=== PATIENT | female | born 1950 | race African-American/Black ===

== ENCOUNTER 2017-10-05 11:05 | Emergency (ER) | payer MEDICARE, OTHER ==
[~2017-10-05] VITALS: Ht 154.9 cm; Wt 72.6 kg
--- NOTE | 2017-10-05 11:28 | Emergency Room Report ---
History of Present Illness General Chief Complaint: Chest Pain Source: Patient Present Illness HPI Patient is a 67-year-old female who presented after increased chest discomfort as well as difficulty breathing. Patient gradual onset of symptoms. She reports having increased difficulty breathing with supine position. She states she had prior history of rheumatoid arthritis as well as type 2 diabetes. She reports having stopped taking Lasix approximately 3 weeks ago. The patient the reports having increased salt intake in the past day. The patient reports having some difficulty with swallowing. Allergies: Coded Allergies: PENICILLINS (Verified Allergy, Unknown, 10/05/17) Patient History Last Menstrual Period: Unk Reviewed Nursing Documentation: PMH: Agreed; PSxH: Agreed Nursing Documentation-PMH Hx Diabetes: Yes Review of Systems All Other Systems: negative except mentioned in HPI Physical Exam Vital Signs Date Time Temp Pulse Resp B/P (MAP) Pulse Ox O2 Delivery O2 Flow Rate FiO2 10/05/17 11:15 98.6 99 22 163/93 100 Room Air 98.6 General Appearance: alert, moderate distress, Chronically Ill Eyes: bilateral eye other - disconjugate gaze ENT: no angioedema, normal voice Neck: limited range of motion Cardiovascular #1: regular rate, rhythm, edema - 3+ Cardiovascular #2: 2+ carotid (R), 2+ carotid (L), 2+ radial (R), 2+ radial (L) , 2+ dorsalis pedis (R), 2+ dorsalis pedis (L) Gastrointestinal: normal inspection, non tender, soft Musculoskeletal: decreased range of motion Neurologic: normal inspection, alert, oriented x3, responsive, site physician III-XII nml as tested Skin: normal inspection, no rash, palpation normal Medical Decision Making Diagnostic Impression: Primary Impression: Chest pain Additional Impressions: Renal failure Bilateral pleural effusion ER Course Patient presented for chest pain. Differential diagnosis included but was not limited to acute coronary syndrome, pulmonary embolism, pneumonia, aortic dissection, shingles, pneumothorax, aortic dissection, esophageal rupture, pericarditis. Because of complexity of patient's case laboratory testing and imaging studies were ordered.Laboratory testing was notable for markedly elevated BUN/creatinine. The patient was noted to be EKG interpreted by me showed normal sinus rhythm with rate of 96 with nonspecific T wave changes. The patient was given IV Lasix.The patient presented having some improvement in her symptoms. The patient was advised risk benefits alternatives of leaving AGAINST MEDICAL ADVICE and he indicated understanding and all questions are answered patient still continued want to leave and signed AGAINST MEDICAL ADVICE. Despite risks including but not limited to disability and worsening of current lifestyle. The patient was advised that she was not okay for travel and that she should be admitted for further treatment of effusions and possible dialysis. The patient stated that she did not want to remain in the hospital.patient is advised to return at any time. Labs Test 10/05/17 11:48 White Blood Count 8.9 K/UL (4.8-10.8) Red Blood Count 3.03 M/UL (4.20-5.40) Hemoglobin 9.0 G/DL (12.0-16.0) Hematocrit 26.7 % (37.0-47.0) Mean Corpuscular Volume 88 FL (80-99) Mean Corpuscular Hemoglobin 29.7 PG (27.0-31.0) Mean Corpuscular Hemoglobin Concent 33.7 G/DL (32.0-36.0) Red Cell Distribution Width 13.7 % (11.6-14.8) Platelet Count 391 K/UL (150-450) Mean Platelet Volume 6.6 FL (6.5-10.1) Neutrophils (%) (Auto) 79.3 % (45.0-75.0) Lymphocytes (%) (Auto) 14.3 % (20.0-45.0) Monocytes (%) (Auto) 4.9 % (1.0-10.0) Eosinophils (%) (Auto) 0.6 % (0.0-3.0) Basophils (%) (Auto) 0.9 % (0.0-2.0) Prothrombin Time 10.6 SEC (9.30-11.50) Prothromb Time International Ratio 1.0 (0.9-1.1) Activated Partial Thromboplast Time 28 SEC (23-33) D-Dimer 3.66 mg/L FEU (0.00-0.49) Sodium Level 138 MMOL/L (136-145) Potassium Level 4.9 MMOL/L (3.5-5.1) Chloride Level 103 MMOL/L (98-107) Carbon Dioxide Level 20 MMOL/L (21-32) Anion Gap 16 mmol/L (5-15) Blood Urea Nitrogen 70 mg/dL (7-18) Creatinine 5.1 MG/DL (0.55-1.30) Estimat Glomerular Filtration Rate 8.5 mL/min (>60) Glucose Level 201 MG/DL (74-106) Calcium Level 8.7 MG/DL (8.5-10.1) Total Bilirubin 0.6 MG/DL (0.2-1.0) Aspartate Amino Transf (AST/SGOT) 30 U/L (15-37) Alanine Aminotransferase (ALT/SGPT) 53 U/L (12-78) Alkaline Phosphatase 138 U/L (46-116) Total Creatine Kinase 89 U/L (26-308) Creatine Kinase MB 1.0 NG/ML (0.0-3.6) Creatine Kinase MB Relative Index 1.1 Troponin I 0.009 ng/mL (0.000-0.056) Pro-B-Type Natriuretic Peptide > 85379 pg/mL (0-125) Total Protein 7.3 G/DL (6.4-8.2) Albumin 2.7 G/DL (3.4-5.0) Globulin 4.6 g/dL Albumin/Globulin Ratio 0.6 (1.0-2.7) Lipase 72 U/L (73-393) Last Vital Signs Date Time Temp Pulse Resp B/P (MAP) Pulse Ox O2 Delivery O2 Flow Rate FiO2 10/05/17 11:15 98.6 99 22 163/93 100 Room Air 98.6 Status: improved Disposition: AGAINST MEDICAL ADVICE Condition: Serious Luis Rocha MD Oct 05, 2017 11:28
[2017-10-05] MEDS ORDERED: Aspirin Baby 81mg ORAL ONE (11:30)
[2017-10-05] MEDS ORDERED: Isovue-370 150ml vial INJ PRN (11:30)
[2017-10-05 11:45] VITALS: BP 163/93
[2017-10-05 12:21] LABS: ANION GAP 16 mmol/L (5-15); BLOOD UREA NITROGEN 70 mg/dL (7-18); CALCIUM 8.7 MG/DL (8.5-10.1); CARBON DIOXIDE 20 MMOL/L (21-32); CHLORIDE 103 MMOL/L (98-107); CREATININE 5.1 MG/DL (0.55-1.30); POTASSIUM 4.9 MMOL/L (3.5-5.1); SODIUM 138 MMOL/L (136-145)
[2017-10-05 12:37] LABS: ALANINE AMINOTRANSFERASE 53 U/L (12-78); ALBUMIN 2.7 G/DL (3.4-5.0); ALBUMIN/GLOBULIN RATIO 0.6 (1.0-2.7); ALKALINE PHOSPHATASE 138 U/L (46-116); ASPARTATE AMINO TRANSFERASE 30 U/L (15-37); BILIRUBIN,TOTAL 0.6 MG/DL (0.2-1.0); CREATINE KINASE 89 U/L (26-308)
[2017-10-05 12:53] LABS: BASOPHILS % (AUTO) 0.9 % (0.0-2.0); EOSINOPHILS % (AUTO) 0.6 % (0.0-3.0); HEMATOCRIT 26.7 % (37.0-47.0); LYMPHOCYTES % (AUTO) 14.3 % (20.0-45.0); MEAN CORPUSCULAR VOLUME 88 FL (80-99); MONOCYTES % (AUTO) 4.9 % (1.0-10.0); NEUTROPHILS % (AUTO) 79.3 % (45.0-75.0); PLATELET COUNT 391 K/UL (150-450); RED BLOOD COUNT 3.03 M/UL (4.20-5.40); RED CELL DISTRIBUTION WIDTH 13.7 % (11.6-14.8); WHITE BLOOD COUNT 8.9 K/UL (4.8-10.8)
[2017-10-05 13:00] VITALS: BP 163/93
--- NOTE | 2017-10-05 13:14 | Diagnostic Imaging Report ---
EXAM: XR Chest, 1 View CLINICAL HISTORY: Shortness of breath TECHNIQUE: Frontal view of the chest. COMPARISON: No relevant prior studies available. FINDINGS: Lungs: Bibasilar opacities which may represent atelectasis versus pneumonia. Pleural space: Bilateral mild to moderate pleural effusions. No pneumothorax. Heart: Unremarkable. No cardiomegaly. Mediastinum: Unremarkable. Bones/joints: Unremarkable. Tubes, lines and devices: EKG leads overlie the thorax. IMPRESSION: 1. Bibasilar opacities which may represent atelectasis versus pneumonia. 2. Bilateral mild to moderate pleural effusions.
--- NOTE | 2017-10-08 14:17 | Cardiology Report ---
APPROVED REPORT EKG Measurement Heart [id number] MI [id number] [id number] Normal sinus rhythm Nonspecific T wave abnormality Abnormal ECG
== END 2017-10-05 13:00 | disposition left against medical advice (07) ==
LOC: EMR 11:50
DX: R07.9 Chest pain, unspecified (principal); N19 Unspecified kidney failure; J90 Pleural effusion, not elsewhere classified; R06.02 Shortness of breath; M06.9 Rheumatoid arthritis, unspecified; E11.9 Type 2 diabetes mellitus without complications; R13.10 Dysphagia, unspecified; Z88.0 Allergy status to penicillin
CPT/HCPCS: 36415; 71045; 80053; 82550; 82553; 83690; 83880; 84484; 85025; 85379; 85610; 85730; 93005; 99283